=== PATIENT | male | born 1945 | race Hispanic/Latino ===

== ENCOUNTER → 2023-10-11 | Outpatient (CLI) | payer OTHER | END | disposition home or self-care (01) | LOC: RAH 14:15 | PROVIDERS: ATTEND Internal Medicine Cardiovascular Disease | DX: Z13.6 Encounter for screening for cardiovascular disorders (principal); R93.1 Abnormal findings on diagnostic imaging of heart and coronary circulation | CPT/HCPCS: 75571 ==

== ENCOUNTER → 2023-12-01 | Outpatient (CLI) | payer MEDICARE, OTHER | END | disposition home or self-care (01) | LOC: SHCH 07:43 | PROVIDERS: ATTEND Internal Medicine Cardiovascular Disease | DX: I08.8 Other rheumatic multiple valve diseases (principal); I70.0 Atherosclerosis of aorta | CPT/HCPCS: 93306 ==

== ENCOUNTER → 2023-12-15 | Outpatient (CLI) | payer MEDICARE, OTHER ==
[2023-12-15 12:42] LABS: ALBUMIN 4.1 g/dL (3.5-5.0); BILIRUBIN,TOTAL 0.7 mg/dL (0.2-1.0); CREATININE 1.1 mg/dL (0.5-1.3); POTASSIUM 4.3 mmol/L (3.5-5.1); TOTAL PROTEIN, SERUM 7.7 g/dL (6.0-8.3)
== END | disposition home or self-care (01) ==
LOC: LAB 08:48
PROVIDERS: ATTEND Internal Medicine Cardiovascular Disease
DX: I70.0 Atherosclerosis of aorta (principal); E78.5 Hyperlipidemia, unspecified
CPT/HCPCS: 36415; 80053; 80061

== ENCOUNTER → 2023-12-26 | Outpatient (CLI) | payer MEDICARE, OTHER ==
[~2023-12-26] VITALS: Ht 162.6 cm; Wt 76.0 kg
[~2023-12-26] MED LIST: ASPI-1197 PO; ATOR20TA65 PO; NIAC1CAP PO; RABE20TA30 PO
[2023-12-26 14:01] LABS: BASOPHILS # (AUTO) 0.03 K/uL (0.00-0.20); BASOPHILS % (AUTO) 0.4 % (0.0-5.0); EOSINOPHILS # (AUTO) 0.48 K/uL (0.00-0.70); EOSINOPHILS % (AUTO) 6.9 % (0.0-8.0); HEMATOCRIT 44.5 % (42-54); IMMATURE GRANULOCYTE ABSOLUTE 0.01 K/uL (0-1); LYMPHOCYTES # (AUTO) 1.9 K/uL (1.0-4.8); LYMPHOCYTES % (AUTO) 27.1 % (21.0-51.0); MEAN CORPUSCULAR HEMOGLOBIN 32.6 pg (27.0-33.0); MEAN CORPUSCULAR VOLUME 98.7 fL (79-99); MONOCYTES # (AUTO) 0.8 K/uL (0.1-1.0); MONOCYTES % (AUTO) 11.3 % (3.0-13.0); NEUTROPHILS # (AUTO) 3.8 K/uL (1.8-7.7); NEUTROPHILS % (AUTO) 54.2 % (40.0-77.0); PLATELET COUNT (AUTO) 167 K/uL (130-400); RED BLOOD CELL COUNT(AUTO) 4.51 MIL/uL (4.50-6.20); RED CELL DISTRIBUTION WIDTH 12.7 % (11.0-15.5)
[2023-12-26 14:08] LABS: CREATININE 1.2 mg/dL (0.5-1.3); POTASSIUM 3.7 mmol/L (3.5-5.1)
[2023-12-26 14:11] LABS: INR 1.04 (0.85-1.15); PROTHROMBIN TIME 11.2 SEC (9.6-11.6)
[2023-12-26 14:13] LABS: APPEARANCE,URINE CLEAR (CLEAR); BILIRUBIN,URINE NEGATIVE (NEGATIVE); COLOR,URINE COLORLESS (YELLOW); GLUCOSE, URINE (UA) NEGATIVE (NEGATIVE); KETONES,URINE NEGATIVE (NEGATIVE); LEUKOCYTE ESTERASE ,URINE NEGATIVE Leu/uL (NEGATIVE); NITRATE,URINE NEGATIVE (NEGATIVE); OCCULT BLOOD,URINE NEGATIVE (NEGATIVE); PARTIAL THROMBOPLASTIN TIME 29.3 SEC (26.3-35.5); PH,URINE 5.5 (5.0-8.0); PROTEIN,URINE NEGATIVE (NEGATIVE); UROBILINOGEN,URINE 0.2 mg/dL (0.2-1.0)
[2023-12-26 14:18] LABS: ADD UA MICROSCOPIC NO
[2023-12-26 14:21] VITALS: BP 153/68; PULSE 61; RESP 18; TEMP 97.9
[2023-12-26 14:58] LABS: B-TYPE NATRIURETIC PEPTIDE 18 pg/mL (0-100)
--- NOTE | 2023-12-26 15:39 | EKG ---
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
--- NOTE | 2023-12-26 16:55 | HMCIMG ---
CHEST 1VW HISTORY: Preop COMPARISON: None FINDINGS: A frontal projection of the chest was obtained. No acute pulmonary infiltrates is seen. The heart is normal in size. Prominent interstitial markings are seen. No evidence of aortic calcification is seen. IMPRESSION: 1. No acute pulmonary infiltrate is seen.
== END | disposition home or self-care (01) ==
LOC: DAH 10:00 → EDSTATUS 13:00
PROVIDERS: ATTEND Internal Medicine Cardiovascular Disease
DX: Z01.818 Encounter for other preprocedural examination (principal); Z01.812 Encounter for preprocedural laboratory examination; I50.22 Chronic systolic (congestive) heart failure; I44.7 Left bundle-branch block, unspecified; Z53.8 Procedure and treatment not carried out for other reasons
CPT/HCPCS: 36415; 71045; 80048; 81003; 83880; 85025; 85610; 85730; 93005

== ENCOUNTER 2024-01-05 05:54 | Day surgery (SDC) | payer MEDICARE, OTHER ==
[2024-01-03 15:28] VITALS: BP 153/68; PULSE 61; RESP 18; TEMP 208.2; TEMP 97.9
--- NOTE | 2024-01-03 15:37 | NUR ---
vital signs done on 12/26/2023 in pre-op. Addendum: 01/03/24 at 1539 by GEOVANNA ROBERTS RN RN Amended: Links added.
[2024-01-05] VITALS (8 sets, daily range): BP systolic 94–131; BP diastolic 60–65; PULSE 47–61; RESP 9–20; TEMP 96.7–97.9
[~2024-01-05] VITALS: Ht 162.6 cm; Wt 74.6 kg
[2024-01-05] MEDS: 0.9%NACL 1000ML 1,000 ML IV ONE (06:43)
[2024-01-05] MEDS ORDERED: IOHEXOL 350 MG/ML 100ML INFUS..BTL IV ONE (07:16)
[2024-01-05] MEDS ORDERED: LIDOCAINE HCL 400MG/20ML VIAL ONE (07:16)
[2024-01-05] MEDS ORDERED: SODIUM BICARB 50MEQ 50ML VIAL 50 ML ONE (07:16)
[2024-01-05] MEDS ORDERED: NITROGLYCERIN 50MG VIAL ONE (07:17)
[2024-01-05] MEDS ORDERED: IOHEXOL-350 50ML VIAL IV ONE (07:17)
[2024-01-05] MEDS ORDERED: HEParin-NS 1,000 UNIT/500 ML 1,000 ML IV ONE (07:17)
[2024-01-05] MEDS ORDERED: niCARDIpine 25MG INJ IV ONE (07:37)
[2024-01-05] MEDS ORDERED: FENTanyl CITRate PF 50 MCG/1 ML 2ML VIAL ONE (07:42)
[2024-01-05] MEDS ORDERED: MIDAZOLAM HCL 1 MG/ML 2ML VIAL ONE (07:42)
[2024-01-05] MEDS ORDERED: HEParin 10,000 UNIT/10ML (1,000 UNIT/ML) VIAL ONE (07:49)
--- NOTE | 2024-01-05 08:33 | PRN ---
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 The patient had been explained risks and benefits of the procedure and accepted prior to this procedure. Patient was sedated with 1 mg Versed and 50 mcg fentanyl. Under local anesthesia with 1% lidocaine the right radial artery was entered percutaneously and a 5/6 Tamazight Terumo radial sheath was advanced into the vessel. A cocktail of 5000 units aqueous heparin, 200 mcg Cardene and 200 mcg nitroglycerin was administered via radial arterial injection. A 6 Tamazight TIGG catheter was advanced to the aortic root over a guidewire and the right coronary was cannulated for selective coronary arteriograms, then the left coronary was cannulated for selective left coronary arteriograms. An exchange was made for a 6 Tamazight pigtail using a guidewire and the left ventricle was cannulated. Left ventricular cineangiography was performed in BURNS projection and then a pullback recording was obtained. The catheter was removed over a guidewire. At the conclusion of the procedure arterial hemostasis was obtained by use of a radial band with excellent hemostasis and no complications.. The patient was transferred from the research lab assistant in stable condition. Results: A. Hemodynamics: LVEDP eight before and after angiography. LV systolic pressure 115 with aortic root pressure 114/56, mean 79. B. Ventriculography: Left ventricular cineangiography demonstrates normal left ventricular size and normal mitral valve function. The mid and apical inferior segments in the apical anterior and apical cap segments are hypokinetic and the ejection fraction is 50% by planimetry. C. Coronary arteriography: This is a right-dominant system. The right coronary supplies the posterior descending and posterolateral and the AV estefani branch. There are 30% narrowings in the proximal vertical portion and at the acute margin but no high-grade stenosis detected. Left main is free of disease. Left anterior descending is notable for 30% proximal plaque and 30% plaque immediately after the diagonal. The LAD system is tortuous and it wraps around the apex and supplies the apical 3rd of the inferior groove. Left circumflex supplies a large ramus intermedius that arises near the origin of the circumflex and courses to the apex. There are two additional obtuse marginals of moderate-size and a small terminal posterolateral branch. Circumflex is free of disease. 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 There is mild plaque that could represent previously unstable plaque and there may have been previous ischemic events. Other option would be possible myocarditis causing wall motion abnormalities. EF is 50% by planimetry. Recommendations: Consider SGLT2 inhibitor, beta-sincere, Entresto, and high-intensity statin therapy JARED PANTOJA MD Jan 05, 2024 08:33
[2024-01-05] MEDS: 0.9% NACL 500ML IV.SOLN 500 ML IV SCH (09:50)
--- NOTE | 2024-01-05 11:15 | NUR ---
tr-band: removed per marbella frausto rn with no active bleeding present. cleansed area with chlor prep then followed by applying sterile 2x2 gauze then 4x4 tegaderm. no redness/swelling noted to surrounding area.
== END 2024-01-05 11:40 | disposition home or self-care (01) ==
LOC: DAH 05:54
PROVIDERS: ATTEND Internal Medicine Cardiovascular Disease
DX: I50.22 Chronic systolic (congestive) heart failure (principal); I25.10 Atherosclerotic heart disease of native coronary artery without angina pectoris; E78.5 Hyperlipidemia, unspecified; Z79.82 Long term (current) use of aspirin; Z79.899 Other long term (current) drug therapy
CPT/HCPCS: 93458; C1769 ×2; C1894; A4649; J3010; J3490 ×4; J7030; J1644 ×2; J2250; Q9967 ×2; A4215; A4222; A6260; A4221; A4663; A4216; A6206; A4606; Q9965; A4223 ×3; 96360; 96361; 99156; 99157